=== PATIENT | female | born 1995 | race Caucasian/White ===

== ENCOUNTER → 2022-08-20 | Outpatient (CLI) | payer OTHER, SELFPAY ==
--- NOTE | 2022-08-20 16:32 | US_ITS ---
INDICATION: FIRST TRIMESTER BLEEDING EXAMINATION: US OB Transvaginal TECHNIQUE: Transabdominal pelvic ultrasound was performed. Grayscale, spectral waveform, and color flow Doppler evaluation of the adnexa. COMPARISON: None. FINDINGS: UTERUS: Measures 9.4 x 6 x 5.2 cm. RIGHT OVARY: Not visualized LEFT OVARY: Measures 2.2 x 2.2 x 2.8 cm. Normal. FREE FLUID: None. INTRAUTERINE GESTATIONAL SAC(s) (size/shape): Single. . YOLK SAC: Identified POLE: Identified CRL 1.3 cm. ESTIMATED GESTATION AGE: 7 weeks and 4 days. HEART MOTION: 157 bpm. PLACENTA: Not visualized due to age. SUBCHORIONIC HEMORRHAGE: None. AMNIOTIC FLUID: Qualitatively normal. US/Transvaginal w/Preg US IMPRESSION: Single live intrauterine . Estimated gestational age is 7 weeks and 4 days. Electronically Signed: Castro Meneses MD at 19:23 EDT ,
== END | disposition home or self-care (01) ==
PROVIDERS: Referring Provider Family Medicine; Visit Provider Family Medicine
DX: O20.9 Hemorrhage in early pregnancy, unspecified (principal); Z3A.01 Less than 8 weeks gestation of pregnancy
CPT/HCPCS: 76817